=== PATIENT | male | born 1955 | race Two or more races ===

== ENCOUNTER 2018-05-21 13:44 | Emergency (ER) | payer MEDICARE, OTHER, BC ==
[2018-05-21] MEDS ORDERED: IPRATROPIUM/ALBUTEROL 0.5-2.5 MG/3 ML AMPUL NEB ONE (14:14)
--- NOTE | 2018-05-21 14:15 | ER Document Report ---
ED Medical Screen (RME) - General Chief Complaint: Sore Throat Stated Complaint: WEAKNESS Time Seen by Provider: 05/21/18 14:13 Mode of Arrival: Ambulatory Information source: Patient Notes: This is a 62-year-old man with a history of diabetes, hypertension, obstructive sleep apnea (CPAP) who presents to the emergency room with cough, sore throat, congestion, shortness of breath and generalized malaise for the past 3 days. TRAVEL OUTSIDE OF THE [place] IN LAST 30 DAYS: No - Related Data Allergies/Adverse Reactions: No Known Allergies Allergy (Verified 05/21/18 13:47) Past Medical History - Social History Frequency of alcohol use: None Drug Abuse: None - Past Medical History Cardiac Medical History: Reports: Hx Hypertension Denies: Hx Coronary Artery Disease, Hx Heart Attack Pulmonary Medical History: Reports: Hx Pneumonia Denies: Hx Asthma, Hx Bronchitis, Hx COPD Neurological Medical History: Denies: Hx Cerebrovascular Accident, Hx Seizures Endocrine Medical History: Reports: Hx Diabetes Mellitus Type 2 Renal/ Medical History: Denies: Hx Peritoneal Dialysis Musculoskeltal Medical History: Reports Hx Arthritis Past Surgical History: Reports: Hx Orthopedic Surgery - left knee arthroscopic surgery, Hx Tonsillectomy. Denies: Hx Pacemaker - Immunizations Hx Diphtheria, Pertussis, Tetanus Vaccination: Yes Physical Exam - Vital signs Vitals: Temp Pulse Resp BP Pulse Ox 99.2 F 102 H 16 151/74 H 96 05/21/18 13:48 05/21/18 13:48 05/21/18 13:48 05/21/18 13:48 05/21/18 13:48 Course - Vital Signs Vital signs: Temp Pulse Resp BP Pulse Ox 99.2 F 102 H 16 151/74 H 96 05/21/18 13:48 05/21/18 13:48 05/21/18 13:48 05/21/18 13:48 05/21/18 13:48
[2018-05-21 14:57] LABS: ABSOLUTE BASOPHILS # (AUTO) 0.1 10^3/uL (0.0-0.2); ABSOLUTE EOSINOPHILS # (AUTO) 0.2 10^3/uL (0.0-0.6); ABSOLUTE LYMPHOCYTES (AUTO) 1.6 10^3/uL (0.5-4.7); ABSOLUTE MONOCYTES (AUTO) 0.8 10^3/uL (0.1-1.4); ABSOLUTE NEUT (AUTO) 6.5 10^3/uL (1.7-8.2); BASOPHILS % (AUTO) 0.8 % (0-2); EOSINOPHILS % (AUTO) 2.4 % (0-6); HEMATOCRIT 45.7 % (37.9-51.0); HEMOGLOBIN 16.1 g/dL (13.5-17.0); LYMPHOCYTES % (AUTO) 17.6 % (13-45); MEAN CORPUSCULAR HEMOGLOBIN 31.1 pg (27.0-33.4); MEAN CORPUSCULAR HGB CONC 35.3 g/dL (32.0-36.0); MEAN CORPUSCULAR VOLUME 88 fl (80-97); MONOCYTES % (AUTO) 8.8 % (3-13); PLATELET COUNT 242 10^3/uL (150-450); RED BLOOD COUNT 5.19 10^6/uL (4.35-5.55); RED CELL DISTRIBUTION WIDTH 13.5 % (11.5-14.0); SEGMENTED NEUTROPHILS % (AUTO) 70.4 % (42-78); TOTAL CELLS COUNTED % (AUTO) 100 %; WHITE BLOOD COUNT 9.2 10^3/uL (4.0-10.5)
--- NOTE | 2018-05-21 15:00 | RADIOLOGY REPORT (SQ) ---
EXAM DESCRIPTION: CHEST 2 VIEWS COMPLETED DATE/TIME: 05/21/2018 2:50 pm REASON FOR STUDY: cough, sob COMPARISON: 10/17/2013 EXAM PARAMETERS: NUMBER OF VIEWS: two views TECHNIQUE: Digital Frontal and Lateral radiographic views of the chest acquired. RADIATION DOSE: NA LIMITATIONS: none FINDINGS: LUNGS AND PLEURA: No opacities, masses or pneumothorax. No pleural effusion. MEDIASTINUM AND HILAR STRUCTURES: No masses or contour abnormalities. HEART AND VASCULAR STRUCTURES: Heart normal size. No evidence for failure. BONES: No acute findings. HARDWARE: None in the chest. OTHER: No other significant finding. IMPRESSION: NO ACUTE RADIOGRAPHIC FINDING IN THE CHEST. TECHNICAL DOCUMENTATION: JOB ID: [id number] [employer]- All Rights Reserved Reading location - IP/workstation name: [email or web address]
[2018-05-21 15:12] LABS: ALANINE AMINOTRANSFERASE 38 U/L (21-72); ALBUMIN 4.2 g/dL (3.5-5.0); ALKALINE PHOSPHATASE 80 U/L (38-126); ANION GAP 16 (5-19); ASPARTATE AMINO TRANSFERASE 27 U/L (17-59); BILIRUBIN,DIRECT 0.4 mg/dL (0.0-0.4); BILIRUBIN,TOTAL 0.6 mg/dL (0.2-1.3); BLOOD UREA NITROGEN 14 mg/dL (7-20); CALCIUM 9.4 mg/dL (8.4-10.2); CARBON DIOXIDE 28 mmol/L (22-30); CHLORIDE 100 mmol/L (98-107); GLUCOSE 177 mg/dL (75-110); POTASSIUM 4.4 mmol/L (3.6-5.0); SODIUM 143.8 mmol/L (137-145); TOTAL PROTEIN 7.7 g/dL (6.3-8.2)
--- NOTE | 2018-05-21 15:14 | ER Document Report ---
ED General - General Mode of Arrival: Ambulatory Information source: Patient TRAVEL OUTSIDE OF THE [place] IN LAST 30 DAYS: No <CHENCHO CHILDRESS - Last Filed: 05/21/18 16:09> <ERNESTINE CANSECO - Last Filed: 05/21/18 16:51> - General Chief Complaint: Sore Throat Stated Complaint: WEAKNESS Time Seen by Provider: 05/21/18 14:13 Notes: Patient is a 62-year-old male with diabetes, hypertension, obstructive sleep apnea (CPAP) presents to the emergency room with a cough, sore throat, congestion, shortness of breath and generalized malaise for the past 3 days. Patient states his cough is productive with yellowish sputum and his symptoms are worse when he wakes up in the morning. Patient states his grandson recently "brought the cold home". Patient finished a breathing treatment when approached at bedside and states his breathing is a little better. Patient denies any fevers. (CHENCHO CHILDRESS) - Related Data Allergies/Adverse Reactions: No Known Allergies Allergy (Verified 05/21/18 13:47) Past Medical History - General Information source: Patient - Social History Smoking Status: Never Smoker Frequency of alcohol use: None Drug Abuse: None Family History: Reviewed & Not Pertinent Patient has suicidal ideation: No Patient has homicidal ideation: No - Past Medical History Cardiac Medical History: Reports: Hx Hypertension Pulmonary Medical History: Reports: Hx Pneumonia Endocrine Medical History: Reports: Hx Diabetes Mellitus Type 2 Musculoskeletal Medical History: Reports Hx Arthritis Past Surgical History: Reports: Hx Orthopedic Surgery - left knee arthroscopic surgery, Hx Tonsillectomy - Immunizations Hx Diphtheria, Pertussis, Tetanus Vaccination: Yes <CHENCHO CHILDRESS - Last Filed: 05/21/18 16:09> Review of Systems - Review of Systems Constitutional: See HPI, Malaise EENT: See HPI, Throat pain Cardiovascular: No symptoms reported Respiratory: Cough, Sputum Gastrointestinal: No symptoms reported Genitourinary: No symptoms reported Male Genitourinary: No symptoms reported Musculoskeletal: No symptoms reported Skin: No symptoms reported Hematologic/Lymphatic: No symptoms reported Neurological/Psychological: No symptoms reported -: Yes All other systems reviewed and negative <CHENCHO CHILDRESS - Last Filed: 05/21/18 16:09> Physical Exam - General General appearance: Appears well, Alert In distress: None - HEENT Head: Normocephalic, Atraumatic Eyes: Normal Conjunctiva: Normal Extraocular movements intact: Yes Pupils: PERRL Mucous membranes: Moist Pharynx: Erythema Neck: Normal - Respiratory Respiratory status: No respiratory distress Chest status: Nontender Breath sounds: Rhonchi - with cough, Other - Voice is hoarse Chest palpation: Normal - Cardiovascular Rhythm: Regular, Tachycardia Heart sounds: Normal auscultation Murmur: No Friction rub: No Gallop: None auscultated - Abdominal Inspection: Normal, Obese Distension: No distension Bowel sounds: Normal Tenderness: Nontender Organomegaly: No organomegaly - Back Back: Normal - Extremities General upper extremity: Normal ROM General lower extremity: Normal ROM - Neurological Neuro grossly intact: Yes Cognition: Normal Orientation: AAOx4 Ned Coma Scale Eye Opening: Spontaneous Ned Coma Scale Verbal: Oriented Ned Coma Scale Motor: Obeys Commands Ned Coma Scale Total: 15 Speech: Normal - Psychological Associated symptoms: Normal affect, Normal mood - Skin Skin Temperature: Warm Skin Moisture: Dry Skin Color: Normal <CHENCHO CHILDRESS - Last Filed: 05/21/18 16:09> - Vital signs Vitals: Temp Pulse Resp BP Pulse Ox 99.2 F 102 H 16 151/74 H 96 05/21/18 13:48 05/21/18 13:48 05/21/18 13:48 05/21/18 13:48 05/21/18 13:48 Course - Laboratory Result Diagrams: 05/21/18 14:25 05/21/18 14:25 <CHENCHO CHILDRESS - Last Filed: 05/21/18 16:09> - Laboratory Result Diagrams: 05/21/18 14:25 05/21/18 14:25 <ERNESTINE CANSECO - Last Filed: 05/21/18 16:51> - Vital Signs Vital signs: Temp Pulse Resp BP Pulse Ox 99.2 F 102 H 16 151/74 H 96 05/21/18 13:48 05/21/18 13:48 05/21/18 13:48 05/21/18 13:48 05/21/18 13:48 - Laboratory Laboratory results interpreted by me: 05/21/18 14:25 Glucose 177 H Discharge <CHENCHO CHILDRESS - Last Filed: 05/21/18 16:09> <ERNESTINE CANSECO - Last Filed: 05/21/18 16:51> - Discharge Clinical Impression: Sore throat (viral), Bronchitis Condition: Stable Disposition: HOME, SELF-CARE Additional Instructions: Sore Throat: Sore throats may be caused by viruses, bacteria, or fungi. Most are due to a virus, and must get better on their own. Bacterial sore throats, particularly those due to "strep," need treatment with antibiotics. If an antibiotic is prescribed, be sure to take the medication for a full 10 days. Failure to take the antibiotic can result in complications such as rheumatic fever. Sometimes, an injection of antibiotics is given instead of pills or liquid. This single "shot" is equal in effectiveness to the oral medication. To relieve symptoms, take acetaminophen for pain. Sip clear liquids frequently, or eat popsicles or ice chips. Anesthetic sprays or lozenges may help. Make sure the air in the room is not too dry. Avoid using decongestants or antihistamines. Call the doctor if there is no improvement in two days, or if you have difficulty breathing, increasing throat pain, high fever, rash, or frequent vomiting. Bronchitis: You have acute bronchitis. This disease is an infection or inflammation of the air passageways in your lungs. Symptoms usually include cough, low grade fever, shortness of breath, and wheezing. The cough usually persists for a couple of weeks. Most cases of bronchitis get better without antibiotics. We prescribe antibiotics when we believe bacteria are damaging your airways, or if there's high risk the bronchitis will worsen into pneumonia. Increase your fluid intake. A cool mist humidifier may make your lungs more comfortable. An expectorant (cough medicine that loosens phlegm) can help. If you smoke, STOP!!! Recovery from bronchitis can be somewhat slow, but you should see improvement within a day or two. Repeated episodes of bronchitis may result in lung damage -- for example, chronic bronchitis, recurrent pneumonias, or emphysema. Call the doctor if you develop increasing fever, shortness of breath, chest pain, bloody sputum, or otherwise worsen. If you have not improved at all after several days, contact the physician. Start the prednisone as prescribed tomorrow for the throat inflammation. Try Robitussin-DM for cough suppression. Drink plenty of water throughout the day in the evening for the next several days. Check your sugars at least twice daily, and increase her insulin dosing if needed. Take Tylenol and ibuprofen for pain as needed. Follow-up with your medical doctor this week if not improving. RETURN TO THE EMERGENCY ROOM IF ANY NEW OR WORSENING SYMPTOMS. Prescriptions: Prednisone 10 mg PO TID #10 tablet Scribe Attestation: 05/21/18 16:51 I personally performed the services described in the documentation, reviewed and edited the documentation which was dictated to the scribe in my presence, and it accurately records my words and actions. (ERNESTINE CANSECO) Scribe Documentation - Scribe Written by Juan Carlos:: Juan Carlos Samuel, 05/21/2018 15:38 acting as scribe for :: Angel Luis <CHENCHO CHILDRESS - Last Filed: 05/21/18 16:09>
[2018-05-21] MEDS ORDERED: PREDNISONE 20 MG TABLET PO ONE (16:41)
[2018-05-21] MEDS ORDERED: KETOROLAC TROMETHAMINE INJ/PF 30 MG/1 ML SDV IV ONE (16:41)
[2018-05-21 17:33] VITALS: BP 133/85
== END 2018-05-21 17:33 | disposition home or self-care (01) ==
LOC: ER 13:44
DX: J02.9 Acute pharyngitis, unspecified (principal); J20.8 Acute bronchitis due to other specified organisms; R53.1 Weakness; I10 Essential (primary) hypertension; E11.9 Type 2 diabetes mellitus without complications
CPT/HCPCS: 94640; 99283; 96374; 36415; 87070; 87880; 85025; 80053; 71046; J1885; A9270 ×2; J7512; J7620